=== PATIENT | female | born 1970 | race Two or more races ===

== ENCOUNTER → 2017-08-11 | Outpatient (CLI) | payer OTHER ==
[2017-07-16 16:28] VITALS: BP 120/73
--- NOTE | 2017-08-11 14:40 | US ---
HISTORY: Right breast lump and pain Bilateral digital diagnostic mammography with CAD and right breast ultrasound. Comparison: September 12, 2014 FINDINGS: Mammogram: Bilateral CC and MLO projections of the right and left breast were obtained. Heterogeneou sly dense fibroglandular tissue is seen to be present without significant interval change. No suspic ious architectural distortion, mass or clustered microcalcifications can be observed to suggest malig marie. No skin thickening or nipple retraction is appreciated. No pathological lymphadenopathy can be identified. Benign-appearing calcifications are noted within the right and left breast. Ultrasound: Multiple grayscale and color Doppler images were obtained in the region of interest along the upper outer quadrant. At 11 o'clock approximately 2 cm from the nipple, there is heterogeneous f ibroglandular parenchyma spanning approximately 9 mm with irregular ill-defined borders favored to re present focal dense fibrocystic breast parenchyma with posterior acoustical enhancement and no internal audit manager al Doppler flow and without definite suspicious cystic or solid nodule to warrant biopsy at this time . IMPRESSION: Probably benign dense fibrocystic breast parenchyma in the region of interest for which 6 month sonographic follow-up is recommended. Alternatively, in the setting of a clinically suspiciou s enlarging palpable finding, ultrasound-guided biopsy would be an option as well. ACR CATEGORY 3 - probably benign findings; short interval follow-up suggested. Diagnostic CAD was utilized and reviewed. * 0 (ZERO) - ASSESSMENT INCOMPLETE; ADDITIONAL IMAGING IS NEEDED. * 1/1 (ONE) - NEGATIVE. * 2/II (TWO) - BENIGN FINDINGS. * 3/III (THREE) - PROBABLY BENIGN FINDING; SHORT INTERVAL FOLLOW-UP SUGGESTED. * 4/IV (FOUR) - SUSPICIOUS ABNORMALITY; BIOPSY SHOULD BE CONSIDERED. * 5/V - HIGHLY SUSPICIOUS OF MALIGNANCY; BIOPSY SHOULD BE PERFORMED. A NEGATIVE X-RAY REPORT SHOULD NOT DELAY BIOPSY IF A DOMINANT OR CLINICALLY SUSPICIOUS MASS IS PRESENT; 4 TO 8 PERCENT OF CANCERS ARE NOT IDENTIFIED BY X-RAY. A NEGA TIVE REPORT MAY REINFORCE THE CLINICAL IMPRESSION. ADENOSIS AND DENSE BREASTS MAY OBSCURE AN UNDERLY ING NEOPLASM. Reported By:
== END ==
LOC: RAD 12:34
PROVIDERS: ATTEND Internal Medicine
DX: N63.11 Unspecified lump in the right breast, upper outer quadrant (principal)
CPT/HCPCS: 76642; 77066